=== PATIENT | male | born 1960 | race Caucasian/White ===

== ENCOUNTER → 2020-09-20 | Outpatient (CLI) | payer OTHER | LOC: CAT 10:01 | PROVIDERS: ATTEND Nurse Practitioner | DX: Z13.6 Encounter for screening for cardiovascular disorders (principal); I25.10 Atherosclerotic heart disease of native coronary artery without angina pectoris; E78.00 Pure hypercholesterolemia, unspecified ==

== ENCOUNTER → 2020-09-20 | Outpatient (CLI) | payer OTHER ==
[2020-09-20 11:16] LABS: ABSOLUTE NEUTROPHILS 4.6 thou/uL (1.4-8.2); EOSINOPHILS 6.6 % (0.0-3.0); HEMATOCRIT 43.8 % (42.0-52.0); HEMOGLOBIN 14.8 gm/dL (14.0-18.0); LYMPHOCYTES 28.8 % (24.0-44.0); MCH 29.6 pg (26.0-34.0); MCHC 33.8 g/dL (28.0-37.0); MCV 87.5 fL (80.0-100.0); MONOCYTES 12.3 % (1.0-8.0); PLATELET COUNT 202 thou/uL (150-400); POLYS 51.3 % (36.0-66.0); RBC 5.01 mil/uL (4.50-6.00)
[2020-09-20 11:45] LABS: ALBUMIN 3.8 g/dL (3.4-5.0); ANION GAP 7 mmol/L (7-16); BUN 20 mg/dL (7-18); CALCIUM 8.7 mg/dL (8.5-10.1); CHLORIDE 106 mmol/L (98-107); CHOLESTEROL 192 mg/dL (<200); CO2 27 mmol/L (21-32); CREATININE 1.1 mg/dL (0.7-1.3); GLUCOSE 108 mg/dL (74-106); HDL CHOLESTEROL 40 mg/dL (>40); LDL CHOLESTEROL 94 mg/dL (<100); SGOT 38 U/L (15-37); SGPT 99 U/L (30-65); SODIUM 140 mmol/L (136-145); TC:HDL 4.8 Ratio (Not establshd); TOTAL BILIRUBIN 0.5 mg/dL (0.2-1.0); TOTAL PROTEIN 7.2 g/dL (6.4-8.2); TRIGLYCERIDE 294 mg/dL (<150); VLDL 59 mg/dL (<40)
[2020-09-21 20:33] LABS: GLYCOHEMOGLOBIN (HGB A1C) 6.1 % (4.8-5.6)
== END ==
LOC: RAD 09:54
PROVIDERS: ATTEND Nurse Practitioner
DX: R07.9 Chest pain, unspecified (principal); Z00.00 Encounter for general adult medical examination without abnormal findings; R53.82 Chronic fatigue, unspecified; R60.0 Localized edema; E11.9 Type 2 diabetes mellitus without complications

== ENCOUNTER → 2020-10-30 | Outpatient (CLI) | payer OTHER | LOC: SJCVCIMAG 08:38 | PROVIDERS: ATTEND Family Medicine | DX: I07.1 Rheumatic tricuspid insufficiency (principal); M79.661 Pain in right lower leg; M79.662 Pain in left lower leg; M79.89 Other specified soft tissue disorders ==

== ENCOUNTER → 2020-12-13 | Outpatient (CLI) | payer OTHER | LOC: ULTRA 09:49 | PROVIDERS: ATTEND Nurse Practitioner | DX: R22.42 Localized swelling, mass and lump, left lower limb (principal) ==

== ENCOUNTER 2020-12-25 16:09 | Inpatient (IN) | payer OTHER ==
[~2020-12-25] VITALS: Ht 185.4 cm; Wt 122.5 kg
[2020-12-25 17:29] LABS: ABSOLUTE NEUTROPHILS 7.7 thou/uL (1.4-8.2); EOSINOPHILS 1.8 % (0.0-3.0); HEMATOCRIT 44.1 % (42.0-52.0); HEMOGLOBIN 14.8 gm/dL (14.0-18.0); LYMPHOCYTES 23.4 % (24.0-44.0); MCH 29.3 pg (26.0-34.0); MCHC 33.5 g/dL (28.0-37.0); MCV 87.3 fL (80.0-100.0); MONOCYTES 9.8 % (1.0-8.0); PLATELET COUNT 246 thou/uL (150-400); RBC 5.05 mil/uL (4.50-6.00); RDW 13.2 % (10.5-14.5)
[2020-12-25 17:53] LABS: ALBUMIN 3.5 g/dL (3.4-5.0); CALCIUM 8.7 mg/dL (8.5-10.1); POTASSIUM 4.4 mmol/L (3.5-5.1); TOTAL BILIRUBIN 0.6 mg/dL (0.2-1.0); TOTAL PROTEIN 6.6 g/dL (6.4-8.2)
[2020-12-25 19:19] VITALS: BP 117/54
[2020-12-26] MEDS ORDERED: ROSUVASTATIN CA20 MG PO (02:07)
[2020-12-26] MEDS ORDERED: METFORMIN HCL500 M3 PO (02:08)
[2020-12-26] MEDS ORDERED: LISINOPRIL5 MG PO (02:09)
[2020-12-26 03:54] VITALS: BP 106/50
--- NOTE | 2020-12-26 04:13 | NUR ---
PT ADMITTED WITH CELLULITIS TO RIGHT LE.PT A/OX4.VSS.ON IV ANTIBIOTICS PER ORDERS.PT ORIENTED TO RM AND UNIT ACTIVITIES.REVIEWED POC AND INAGREEMENT.RIGHT LE WOUND PRESENT,SEE PICTURES IN THE CHART.NO DRAINAGE FROM THE WOUND SURROUNDING SKIN ERYTHEMATOUS AND EDEMATOUS,TENDER TO TOUCH.DR ABARCA TO F/U PT WHILE HERE FOR WOUND TREATMENT.NO C/O PAIN AT THIS TIME.UP AD TALYA IN THE RM.ASSESSMENT COMPLETED DOCUMENTED.NO CONCERNS VOICED AT THIS TIME.WILL CONT WITH POC.
[2020-12-26 06:29] LABS: ABSOLUTE NEUTROPHILS 5.8 thou/uL (1.4-8.2); BASOPHILS 0.7 % (0.0-2.0); EOSINOPHILS 2.3 % (0.0-3.0); HEMATOCRIT 41.3 % (42.0-52.0); HEMOGLOBIN 13.5 gm/dL (14.0-18.0); LYMPHOCYTES 28.6 % (24.0-44.0); MCH 28.9 pg (26.0-34.0); MCHC 32.7 g/dL (28.0-37.0); MCV 88.3 fL (80.0-100.0); MONOCYTES 12.4 % (1.0-8.0); PLATELET COUNT 215 thou/uL (150-400); RBC 4.68 mil/uL (4.50-6.00); RDW 13.3 % (10.5-14.5); WBC 10.4 thou/uL (4.0-11.0)
[2020-12-26 06:44] LABS: CREATININE 1.1 mg/dL (0.7-1.3); MAGNESIUM 2.2 mg/dL (1.8-2.4); POTASSIUM 3.8 mmol/L (3.5-5.1)
[2020-12-26 07:30] VITALS: BP 135/66
--- NOTE | 2020-12-26 14:51 | NUR ---
INITIAL ASSESSMENT: LISETTE reviewed chart and spoke with nursing and attending physician. Pt was admitted from the wound care clinic due to RLE cellulities. Pt is currently on IV abx. ID consulted. SW met with pt at bedside. Introduced role of SW. Pt is alert/orientated x 4. Pt reports he lives at home with his . Prior to admission, pt was independent with ADLs. No use of DME. Pt's PCP is Dr. Stone. No hx of services or post-acute placement. Plan is for pt to discharge home when medically stable. LISETTE is following to assist as needed with discharge planning.
[2020-12-26 15:18] VITALS: BP 98/45
--- NOTE | 2020-12-26 16:01 | NUR ---
CARE ASSUMED AT 0700, PT ALERT AND ORIENTED X4, DENIES ANY PAIN, NAUSEA AND VOMITTING. PT ON ROOM AIR, NO SIGNS OF DISTRESS. UP AD TALYA. WAITING FOR WOUND CARE CARE ABOUT PT WOUND ORDER. PT DENIES ANY NEEDS DULCE MARIA.
[2020-12-26 20:46] VITALS: BP 106/42
[2020-12-27 03:35] LABS: HEMATOCRIT 41.8 % (42.0-52.0); HEMOGLOBIN 13.7 gm/dL (14.0-18.0); MCH 29.1 pg (26.0-34.0); MCHC 32.7 g/dL (28.0-37.0); MCV 88.8 fL (80.0-100.0); RBC 4.71 mil/uL (4.50-6.00); WBC 10.9 thou/uL (4.0-11.0)
[2020-12-27 03:41] LABS: CALCIUM 8.5 mg/dL (8.5-10.1); CREATININE 1.2 mg/dL (0.7-1.3); POTASSIUM 4.1 mmol/L (3.5-5.1)
[2020-12-27 03:50] VITALS: BP 113/44
--- NOTE | 2020-12-27 07:47 | NUR ---
PROGRESS PT A/O X4. LUNGS CLEAR, ABDOMEN SOFT WITH POSITIVE BOWELS SOUNDS. VSS, AFEBRILE. RATES PAIN TO RIGHT LEG A 2 DENIES NEED FOR PAIN MEDICATION. DRESSING TO RIGHT LOWER LEG C/D/I. PEDAL PULSES POSITIVE. ACCUCHECKS AND SSI CONTINUE PT GETTING INTERMITTENT IV ANTIBIOTICS. IV TO LAC WAS CLOTTING OFF AND DIFFICULT TO FLUSH NEW 22 IV STARTED IN . CONTINUE POC.
[2020-12-27 07:51] VITALS: BP 116/52
--- NOTE | 2020-12-27 11:49 | HC ---
[facility] [place] [address] CONSULTATION Name: LUCIEN MORGAN Room #: 356-P ADM IN M.R.#: [id number] Admission: 12/25/20 Attend Phys: Leanne Powers MD Discharge: Date of : 62 Report #: [id number] THIS REPORT FOR: cc: Haroldo Stone MD, Neal A. MD Barry,Sherman Church MD ~ DOC #: [id number] Sherman Milton MD DATE OF SERVICE: 12/26/2020 INFECTIOUS DISEASE CONSULTATION ATTENDING PHYSICIAN: Dr. Powers. REASON FOR CONSULTATION: Right lower extremity inflammatory eruption, likely multifactorial including skin and soft tissue infection with cellulitis. HISTORY OF PRESENT ILLNESS: This is a 60-year-old gentleman with a diagnosis relatively recently of diabetes mellitus who developed a febrile illness with flu-like symptoms several days ago. Subsequently, developed skin changes noted in his right lower extremity. Denies any antecedent injury. However, over the course of 24-48 hours, it progressed fairly dramatically in terms of marked inflammatory changes. He developed a bullous lesion of the posterolateral aspect of the leg. We did a systemic illness as well and the concerns were directed to the emergency room where he was evaluated. Lactic acid of 1.4. CRP of 25.2. Blood cultures were collected and are sterile thus far. A tentative diagnosis of right lower extremity cellulitis. He was admitted and placed on empiric therapy with combination of Zosyn and vancomycin. ALLERGIES: None known. CURRENT MEDICATIONS: Include atorvastatin, metformin XR, lisinopril, sliding scale insulin, pantoprazole, enoxaparin, vancomycin, ____ analgesics, antiemetics, Zosyn. PAST MEDICAL HISTORY: As described above, diabetes mellitus type 2, history of hypertension, hyperlipidemia. SOCIAL HISTORY: Former smoker, occasional ethanol, no illicit drug use. FAMILY HISTORY: Noncontributory. REVIEW OF SYSTEMS: Otherwise, unremarkable. Denies significant pulmonary or gastrointestinal related complaints. PHYSICAL EXAMINATION: [facility] [address] [address] CONSULTATION Name: LUCIEN MORGAN Room #: [address] [place] [address] [place] .R.#: [id number] Admission: 12/25/20 Attend Phys: Leanne Powers MD Discharge: Date of : 62 Report #: [id number] GENERAL: He is alert, cooperative, appropriate. Has some mild amount of distress, reasonably well nourished. VITAL SIGNS: Temperature 98, pulse 64, respirations 16, blood pressure 135/66. SKIN: Warm, dry. HEENT: Normocephalic. Extraocular muscles intact. NECK: Supple. LUNGS: Clear to auscultation bilaterally. HEART: Regular. I do not appreciate a murmur. ABDOMEN: Mildly distended, somewhat firm, nontender. EXTREMITIES: Right lower extremity has moderate changes, basically extending from the ankle to the knee with erythema, swelling. Does have an area of denuded what appeared to be superficial bullous lesion that sloughed. It was somewhat tender locally. There is no overt purulence at this point. GENITOURINARY AND RECTAL: Deferred. LABORATORY DATA: Likewise from this morning, sodium 143, potassium 3.8, chloride 107, bicarbonate 27, anion gap of 9, BUN and creatinine 17 and 1.1, glucose of 110. CBC: White count of 10.4, H and H 13.5 and 41.3, platelets of 215. Sed rate of 18. CRP of 25.2. ASSESSMENT AND PLAN: Right lower extremity inflammatory eruption, skin and soft tissue infection and bullous cellulitis, presumed staph or strep etiology, seemingly will go through the natural progression. Clinically, has improved overall, less systemically ill, ____ localized in terms of his pain. We will add compression in addition to the dressing, likely has underlying venous stasis insufficiency. We will add incentive spirometry as well. We will plan to transition to p.o. antibiotics for the next 24-48 hours. Sherman Milton MD JWIsabell/ARNOLD/LIZ <ELECTRONICALLY SIGNED> By: Sherman Milton MD 12/27/20 1149 [id number] Sherman Milton MD /nt
--- NOTE | 2020-12-27 13:47 | NUR ---
SW reviewed chart and spoke with nursing and attending physician. Pt is progressing towards goals for discharge. Pt had debridement at the bedside yesterday. Pt is on IV abx. Plan is for pt to discharge home when medically stable. SW is following to assist as needed with discharge planning.
[2020-12-27 15:33] VITALS: BP 102/56
--- NOTE | 2020-12-27 18:30 | NUR ---
GRACIELA LEG DRESSING CHANGE PER HOT TAR ROOFER HELPER. VSS. PROGRESSING TOWARDS POC GOALS.
[2020-12-27 19:34] VITALS: BP 118/54
--- NOTE | 2020-12-28 03:50 | NUR ---
Patient progressing towards outcome goals. Rigth leg dressing dry and intact. Up adlib in room without difficulty. Patient given Benadryl for sleep and requesting minimal interruption of sleep tonight. Vital signs stable.
[2020-12-28 07:49] VITALS: BP 117/61
--- NOTE | 2020-12-28 13:14 | NUR ---
SW reviewed chart and spoke with nursing and attending physician. Pt is progressing towards goals for discharge. Pt remains on IV abx. Awaiting input from ID regarding abx for discharge. Plan is for pt to discharge home when medically stable. SW is following to assist as needed with discharge planning.
[2020-12-28] MEDS ORDERED: MINOCYCLINE HC100 M2 PO (14:23)
[2020-12-28 14:35] VITALS: BP 117/61
[2020-12-28 15:21] VITALS: BP 117/61
--- NOTE | 2020-12-28 16:15 | NUR ---
PT DISCHARGED TO HOME...WOUND CARE EXPLAINED...WILL F/U INFECTIOUS DISEASE AND WOUND CARE AND PCP IN 2 WEEKS...
--- NOTE | 2021-01-01 18:41 | P ---
[facility] [place] [address] PROCEDURE REPORT Name: LUCIEN MORGAN Room #: 356-P [facility] IN M.R.#: [id number] Admission: 12/25/20 Attend Phys: Leanne Powers MD Discharge: 12/28/20 Date of : 62 Report #: [id number] THIS REPORT FOR: cc: Haroldo Stone MD, Neal A. MD Althoff, Jeffrey R. MD ~ DOC #: [id number] Herman Batista MD DATE OF SERVICE: 12/26/2020 PREPROCEDURE DIAGNOSIS: Necrotic ulceration, right lower extremity. POSTPROCEDURE DIAGNOSIS: Necrotic ulceration, right lower extremity. PROCEDURE PERFORMED: Sharp full thickness excisional surgical debridement of right lower extremity. HISTORY: This is a 60-year-old male patient who developed cellulitis and ulceration to the right lower extremity. Etiology is indeterminate. He is noted to have a significant area of necrosis in the wound and surrounding tissue appears to be infected. I have discussed with him risks and benefits associated with surgical debridement at the bedside. He is agreeable and wishes to proceed. DESCRIPTION OF PROCEDURE: A timeout was taken. The correct site, correct procedure, correct patient were confirmed. The patient participated in the timeout as well. Topical anesthetic was used with 2% lidocaine gel, following which the area was prepped and draped in the usual sterile fashion. The wound was then debrided with a #15 bladed scalpel and tissue forceps removing skin and subcutaneous tissue, both necrotic as well as a small area of viable tissue down to a healthy clean bleeding base. All necrotic tissue was removed. The patient tolerated the procedure well. He experiences 0/10 pain during and after the procedure. Hemostasis was intact with direct pressure and estimated blood loss was approximately 1 mL. The preprocedure measurements 6.0 x 6.0 by eschar. Postprocedure measurements 6.0 x 6.0 x 0.2 cm. MD IZA Peralta/DAMON <ELECTRONICALLY SIGNED> By: Herman Batista MD 01/01/21 1841 [id number] Herman Batista MD /nt
--- NOTE | 2021-01-01 18:41 | HC ---
[facility] [place] [address] CONSULTATION Name: LUCIEN MORGAN Room #: 356-P [facility] IN M.R.#: [id number] Admission: 12/25/20 Attend Phys: Leanne Powers MD Discharge: 12/28/20 Date of : 62 Report #: [id number] THIS REPORT FOR: cc: Haroldo Stone MD, Neal A. MD Althoff,Herman Quinteros MD ~ DOC #: [id number] Herman Batista MD DATE OF SERVICE: 12/26/2020 CHIEF COMPLAINT: Cellulitis and ulceration of the right calf. HISTORY OF PRESENT ILLNESS: This is a 60-year-old male patient who was seen in the wound center and felt to have significant infection in his right leg and was admitted. He has had an ulceration, which started a couple of weeks ago and has become progressively worse. He has had two courses of oral antibiotic with no improvement. He is admitted for further treatment and I have been asked to see him with regard to ongoing wound healing. PAST MEDICAL HISTORY: Positive for type 2 diabetes mellitus, hypertension, hyperlipidemia. PAST SURGICAL HISTORY: He has had prior hernia repair. MEDICATIONS: Include metformin, lisinopril, and rosuvastatin. SOCIAL HISTORY: Positive for being a previous smoker, occasional alcohol consumption. FAMILY HISTORY: Noncontributory. ALLERGIES: No known drug allergies. REVIEW OF SYSTEMS: CONSTITUTIONAL: Denies fever, chills, weight loss. NEUROLOGICAL: Denies focal weakness, numbness or tingling. EYES: The patient denies visual changes, redness, drainage. ENT: The patient denies earache, nasal drainage, sore throat. CARDIOVASCULAR: The patient denies chest pain, palpitations, diaphoresis. PULMONARY: Denies cough, shortness of breath. GASTROINTESTINAL: No nausea, vomiting or abdominal pain. ORTHOPEDIC: The patient has pain, swelling, redness and ulceration to the right lower extremity. Others systems on a 14-point review of systems are negative. [facility] [address] [place] [address] CONSULTATION Name: LUCIEN MORGAN Room #: [address] [place] [address] [place] ..#: [id number] Admission: 12/25/20 Attend Phys: Leanne Powers MD Discharge: 12/28/20 Date of : 62 Report #: [id number] PHYSICAL EXAMINATION: VITAL SIGNS: Temperature 37.1, pulse 56, respiration of 19, blood pressure 116/52. GENERAL: This is a well-developed, well-nourished male patient appears minimal distress. HEENT: Head normocephalic. Nose and throat clear. NECK: Supple. ABDOMEN: Soft. Bowel sounds present. EXTREMITIES: Lower extremities demonstrate easily palpable distal pulses. There is significant warmth, redness and swelling to the right lower leg consistent with cellulitis. There is a circular ulcer posteriorly that measures 6 x 6 cm by eschar. It is mildly tender to palpation. NEUROLOGIC: Alert and oriented, appropriate. LABORATORY DATA: Include sodium 143, potassium 4.1, chloride 107, CO2 31, BUN 14, creatinine 1.2, glucose of 92. White blood cell count 10.9 with a hemoglobin of 13.7. CLINICAL IMPRESSION: 1. Venous type ulceration versus insect bite versus mild trauma with subsequent ulceration and then significant surrounding right lower extremity cellulitis. 2. Type 2 diabetes mellitus. 3. Hypertension. 4. Hyperlipidemia. RECOMMENDATIONS: At this point in time, debridement was completed at the bedside today, which he tolerated well. Please see separate procedure note. We will recommend topical gentamicin, Xeroform, Kerlix and Jonas wrapped, toes to knees daily. Elevation of the leg. Continue aggressive management of his diabetes and hypertension. Nutritional support to maximize wound healing. I do appreciate being asked to see him in consultation. Herman Batista MD JRA/BALBIR <ELECTRONICALLY SIGNED> By: Herman Batista MD 01/01/21 1841 [id number] Herman Batista MD /nt
== END 2020-12-28 16:17 | disposition home or self-care (01) | DRG 571 ==
LOC: 3W 16:09
PROVIDERS: Nurse Practitioner; ADMIT Hospitalist; ATTEND Internal Medicine
PROC: 0JBN0ZZ Excision of Right Lower Leg Subcutaneous Tissue and Fascia, Open Approach (ICD-10-PCS; principal; 2020-12-26)
DX: L03.115 Cellulitis of right lower limb (principal); L97.219 Non-pressure chronic ulcer of right calf with unspecified severity; E11.9 Type 2 diabetes mellitus without complications; I10 Essential (primary) hypertension; E66.9 Obesity, unspecified; I87.8 Other specified disorders of veins; E78.5 Hyperlipidemia, unspecified; Z87.891 Personal history of nicotine dependence; Z68.35 Body mass index [BMI] 35.0-35.9, adult; Z79.899 Other long term (current) drug therapy
CPT/HCPCS: 10779

== ENCOUNTER → 2020-12-25 | Outpatient (CLI) | payer OTHER ==
[~2020-12-25] MED LIST: LISINOPRIL5 MG PO; METFORMIN HCL500 M3 PO; ROSUVASTATIN CA20 MG PO
== END ==
LOC: HYPER 11:24
PROVIDERS: ATTEND Emergency Medicine
DX: L03.115 Cellulitis of right lower limb (principal); S80.821A Blister (nonthermal), right lower leg, initial encounter; R60.9 Edema, unspecified; E78.5 Hyperlipidemia, unspecified; E66.9 Obesity, unspecified; Z79.84 Long term (current) use of oral hypoglycemic drugs; Z87.891 Personal history of nicotine dependence; Z68.35 Body mass index [BMI] 35.0-35.9, adult; X58.XXXA Exposure to other specified factors, initial encounter; Y93.89 Activity, other specified; Y92.89 Other specified places as the place of occurrence of the external cause; Y99.8 Other external cause status

== ENCOUNTER → 2021-01-09 | Outpatient (CLI) | payer OTHER ==
[~2021-01-09] MED LIST changes: +MINOCYCLINE HC100 M2 PO
== END ==
LOC: HYPER 08:57
PROVIDERS: ATTEND Emergency Medicine
DX: L03.115 Cellulitis of right lower limb (principal); S80.821D Blister (nonthermal), right lower leg, subsequent encounter; R60.9 Edema, unspecified; E78.5 Hyperlipidemia, unspecified; E66.9 Obesity, unspecified; Z87.891 Personal history of nicotine dependence; Z68.35 Body mass index [BMI] 35.0-35.9, adult; X58.XXXD Exposure to other specified factors, subsequent encounter